=== PATIENT | male | born 1960 | race Caucasian/White ===

== ENCOUNTER 2021-08-24 10:36 | Day surgery (SDC) | payer MEDICARE, OTHER ==
[~2021-08-24] VITALS: Ht 195.6 cm; Wt 113.6 kg
[2021-08-24] MEDS ORDERED: MIDAZolam 1mg/ml 10ml vial IV ONE (11:20)
[2021-08-24] MEDS ORDERED: fentaNYL/PF 50MCG/1 ML 2ML syringe IV ONE (11:20)
[2021-08-24] MEDS ORDERED: normal saline 1000ml 1,000 ML IV SCH (11:20)
[2021-08-24] MEDS ORDERED: FLEC100T PO (11:22)
[2021-08-24] MEDS ORDERED: ATEN25TA PO (11:22)
[2021-08-24] MEDS ORDERED: APIX5TAB3 PO (11:23)
--- NOTE | 2021-08-24 11:28 | NUR ---
MD notified EKG reads NSR. Procedure cancelled.
== END 2021-08-24 11:30 | disposition home or self-care (01) ==
LOC: SSTAY O 10:36
PROVIDERS: ATTEND Internal Medicine Interventional Cardiology
DX: I48.91 Unspecified atrial fibrillation (principal); Z53.9 Procedure and treatment not carried out, unspecified reason
CPT/HCPCS: 93005